=== PATIENT | male | born 1995 | race Caucasian/White ===

== ENCOUNTER 2018-08-25 18:28 | Emergency (ER) | payer OTHER ==
[~2018-08-25] VITALS: Ht 175.3 cm; Wt 79.8 kg
--- OUTSIDE RECORDS SUMMARY | 2018-08-25 18:33 | XMS REPORT | Continuity of Care Document ---
Author Author [facility] Organization [facility] Address Unknown Phone Unavailable Allergies There is no data. Medications There is no data. Problems There is no data. Procedures There is no data. Results There is no data. Encounters ACCT No. Visit Date/Time Discharge Status Pt. Type Provider Facility Loc./Unit Complaint [id number] 12/18/2012 16:06:00 12/18/2012 23:59:59 CLS Outpatient
[2018-08-25] MEDS ORDERED: HYDR30SU3 RC (19:36)
--- NOTE | 2018-08-25 19:36 | ED GI ---
General Chief Complaint: Rect Problems Stated Complaint: BLOOD IN STOOL Nursing Triage Note: pt stated that he had a bowel movement about an hour ago and saw blood dripping and blood when he wiped. Sepsis Screen: No Definite Risk History of Present Illness Date Seen by Provider: Aug 25, 2018 Time Seen by Provider: 19:00 Initial Comments 23-year-old male presents for rectal pain and bleeding. He reports passing a firm stool approximately one hour prior to arrival, after this he noted some bright red blood from his rectum. He denies having hemorrhoids. He passes approximately 2 stools every morning and one stool in the evening. He reports adequate hydration daily. He has a strong family history of colorectal cancer. He does excessive lifting regularly for work. Timing/Duration: 1-3 Hours Allergies and Home Medications Home Medications Hydrocortisone Acetate 30 Mg Supp.rect, 30 MG RC Q8H Prescribed by: HEATH HOLDER on 08/25/181935 Patient Home Medication List Home Medication List Reviewed: Yes Review of Systems Review of Systems Constitutional: no symptoms reported, see HPI Gastrointestinal: See HPI, Rectal Bleeding All Other Systems Reviewed Negative Unless Noted: Yes Past Hsvlxmi-Hnqzcl-Cqdcut Hx Past Med/Social Hx: Reviewed Nursing Past Med/Soc Hx Patient Social History Alcohol Use: Regular Use Alcohol Beverage of Choice: Beer Recreational Drug Use: No Smoking Status: Current Everyday Smoker Type Used: Smokeless Tobacco 2nd Hand Smoke Exposure: No Recent Foreign Travel: No Contact w/Someone Who Travel: No Recent Infectious Disease Expo: No Recent Hopitalizations: No Physical Abuse: No Sexual Abuse: No Seasonal Allergies Seasonal Allergies: Yes Past Medical History Tonsillectomy Respiratory: No Cardiac: Yes Hypertension Neurological: No Genitourinary: No Gastrointestinal: No Musculoskeletal: No Endocrine: No HEENT: Yes Eye Injury Loss of Vision: Denies Cancer: No Psychosocial: No Integumentary: No Blood Disorders: No Family Medical History Colon cancer 19 MOTHER Physical Exam Vital Signs Vital Signs - First Documented 08/25/18 18:39 Temp 98.6 Pulse 100 Resp 18 B/P (MAP) 151/102 (118) Pulse Ox 98 O2 Delivery Room Air Capillary Refill : Less Than 3 Seconds Height/Weight/BMI Height: 5'9.00" Weight: 176lbs. oz. 79.084403sf; BMI Method:Stated General Appearance: WD/WN, no apparent distress Respiratory: chest non-tender, lungs clear, normal breath sounds Cardiovascular: normal peripheral pulses, regular rate, rhythm Gastrointestinal: normal bowel sounds, non tender, soft, no organomegaly, no pulsatile mass; No distended, No guarding, No rebound, No tenderness Genital/Rectal: normal rectal exam, normal rectal tone, tenderness, other ( internal hemorrhoids with inflammation and tenderness, prostate soft and nontender. No stool obtained during rectal exam for heme testing) Extremities: normal range of motion, non-tender, normal inspection Neurologic/Psychiatric: no motor/sensory deficits, alert, normal mood/affect, oriented x 3 Skin: normal color, warm/dry Progress/Results/Core Measures Results/Orders Vital Signs/I&O 08/25/18 08/25/18 18:39 19:45 Temp 98.6 98.6 Pulse 100 100 Resp 18 18 B/P (MAP) 151/102 (118) 145/93 (110) Pulse Ox 98 98 O2 Delivery Room Air Blood Pressure Mean: 118 Departure Impression Primary Impression: Rectal bleeding Additional Impression: Hemorrhoids Qualified Codes: K64.9 - Unspecified hemorrhoids Disposition: HOME, SELF-CARE Condition: Improved Departure-Patient Inst. Decision time for Depature: 19:30 Referrals: KENISHA COTTO MD (PCP/Family) Primary Care Physician Patient Instructions: Hemorrhoids (DC) Add. Discharge Instructions: Increase fluid in diet, one bottle water every 2 hours while awake. Take vogl-[id number] Roy state 100 mg 1 tablet twice daily to help soften stools. Use hydrocortisone suppository, as directed. You may apply Preparation H externally, for discomfort. Follow-up with Dr. Cotto in approximately one week, sooner if symptoms are persisting or worsen. Return to emergency department if symptoms worsen, increased pain, or new emergent concerns. All discharge instructions reviewed with patient and/or family. Voiced understanding. Scripts Hydrocortisone Acetate (Hydrocortisone Acetate) 30 Mg Supp.rect 30 MG RC Q8H, #20 SUPP.RECT 0 Refills Prov: HEATH HOLDER 08/25/18 Work/School Note: Work Release Form Date Seen in the Emergency Department: Aug 25, 2018 Return to Work: Aug 28, 2018 Restrictions: Need Release from Doctor Other Restrictions Listed Below: No lifting greater than 25-30 lbs. Copy Copies To 1: KENISHA COTTO MD, AMY ARNP Aug 25, 2018 19:36
[2018-08-25 19:45] VITALS: BP 145/93
== END 2018-08-25 19:46 | disposition home or self-care (01) ==
LOC: EDUNIT# 18:28 → ER 18:29
DX: K62.5 Hemorrhage of anus and rectum (principal); K64.8 Other hemorrhoids; I10 Essential (primary) hypertension; F17.200 Nicotine dependence, unspecified, uncomplicated; Z79.52 Long term (current) use of systemic steroids; Z90.89 Acquired absence of other organs; Z80.0 Family history of malignant neoplasm of digestive organs
CPT/HCPCS: 99284

== ENCOUNTER 2018-11-09 06:34 | Outpatient (CLI) | payer OTHER ==
[~2018-11-09] VITALS: Ht 175.3 cm; Wt 75.7 kg
[~2018-11-09 06:34] MED LIST: HYDR30SU3 RC
[2018-11-09] MEDS ORDERED: METO-387 PO (13:21)
[2018-11-09] MEDS ORDERED: PANT40TA3 PO (13:21)
== END 2018-11-09 13:24 | disposition home or self-care (01) ==
LOC: PREOP 06:34
PROVIDERS: ATTEND Surgery
DX: Z01.818 Encounter for other preprocedural examination (principal)

== ENCOUNTER 2018-11-13 06:28 | Day surgery (SDC) | payer OTHER ==
[~2018-11-13] VITALS: Ht 175.3 cm; Wt 75.7 kg
[~2018-11-13 06:28] MED LIST changes: +METO-387 PO; +PANT40TA3 PO
--- OUTSIDE RECORDS SUMMARY | 2018-11-13 06:31 | XMS REPORT | CCD ---
Author Author May Goncalves MD, [facility] Address [address] [place] [address] Phone Care Team Providers Care Cupola Liner Helper Name Role Phone PP Unavailable CCM Unavailable Summary Purpose Interface Exchange Insurance Providers Payer name Policy type / Coverage type Covered libertarian ID Effective Begin Date Effective End Date [facility] Commercial Insurance [id number] Unknown Family history Father Diagnosis Age At Onset Hypertension Unknown Runs in the family Diagnosis Age At Onset Hypertension Unknown Colon cancer Unknown Mother Diagnosis Age At Onset Colon cancer Unknown Social History Social History Element Codes Description Effective Dates Marital status Unknown Single 02/27/2018 Number of children Unknown 0 02/27/[address]: 066141067 Currently uses smokeless tobacco Chew 02/27/[address]: 717055 Currently drinks alcohol 02/27/2018 Frequency of drinks SNOMED CT: 737468028 3 per week 02/27/2018 Has the patient ever used illegal drugs? Unknown Has never used illegal drugs 02/27/2018 Allergies, Adverse Reactions, Alerts Substance Reaction Codes Entered Date Inactivated Date Status Penicillin Unknown 02/27/2018 No Inactive Date Active Past Medical History Illness Codes Condition Status Onset Date Resolved Date Melena ICD-9: 578.1 ICD-10: K92.1 Active 08/28/2018 Unknown Other hemorrhoids ICD- 9: 455.2 ICD-10: K64.8 Active 08/28/2018 Unknown Essential (primary) hypertension ICD-9: 401.1 ICD-10: I10 Active 02/28/2018 Unknown Gastro-esophageal reflux disease without esophagitis ICD-9: 530.81 ICD-10: K21.9 Active 02/28/2018 Unknown Vomiting without nausea ICD-9: 787.03 ICD-10: R11.11 Active 02/28/2018 Unknown Problems Condition Codes Effective Dates Condition Status Melena ICD-9: 578.1 ICD-10: K92.1 08/28/2018 Active Other hemorrhoids ICD- 9: 455.2 ICD-10: K64.8 08/28/2018 Active Essential (primary) hypertension ICD-9: 401.1 ICD-10: I10 02/28/2018 Active Gastro-esophageal reflux disease without esophagitis ICD-9: 530.81 ICD-10: K21.9 02/28/2018 Active Vomiting without nausea ICD-9: 787.03 ICD-10: R11.11 02/28/2018 Active Medications Medication Codes Instructions Start Date Stop Date Status Fill Instructions pantoprazole 40 mg tablet,delayed release RxNorm: 222903 1 Tablet(s) PO daily 08/28/2018 02/23/2019 Active metoprolol succinate ER 25 mg tablet,extended release 24 hr RxNorm: 654934 1 Tablet(s) PO daily 08/28/2018 02/23/2019 Active pantoprazole 40 mg tablet,delayed release RxNorm: 078356 1 Tablet(s) PO daily 04/20/2018 04/19/2018 Inactive pantoprazole 40 mg tablet,delayed release RxNorm: 710203 1 Tablet(s) PO daily 04/20/2018 08/17/2018 Inactive Dexilant 60 mg capsule, delayed release RxNorm: 233876 1 Capsule(s) PO daily 04/18/2018 08/27/2018 Inactive Dexilant 60 mg capsule, delayed release RxNorm: 581740 1 Capsule(s) PO daily 04/18/2018 04/17/2018 Inactive metoprolol succinate ER 25 mg tablet,extended release 24 hr RxNorm: 020450 1 Tablet(s) PO daily 04/14/2018 08/27/2018 Inactive metoprolol succinate ER 25 mg tablet,extended release 24 hr RxNorm: 689294 1 Tablet(s) PO daily 03/13/2018 04/13/2018 Inactive metoprolol succinate ER 25 mg tablet,extended release 24 hr RxNorm: 692000 1 Tablet(s) PO daily No Start Date 2017 Inactive Medication Administered No Medication Administered data Immunizations No Immunization data Assessments Condition Codes Effective Dates Other hemorrhoids ICD-10: K64.8 ICD-9: 455.2 08/28/2018 Melena ICD-10: K92.1 ICD-9: 578.1 08/28/2018 Essential (primary) hypertension ICD-10: I10 ICD-9: 401.1 03/13/2018 Gastro-esophageal reflux disease without esophagitis ICD-10 : K21.9 ICD-9: 530.81 03/13/2018 Vomiting without nausea ICD-10: R11.11 ICD-9: 787.03 02/28/2018 Reason For Visit Reason For Visit Effective Dates Notes hemorrhoids 08/28/2018 vomiting 03/13/2018 vomiting 02/28/2018 Results Observation Observation Code Item Item Code Result Date Alpha-Galactose 1 3 684944 ALPHA-GAL <0.10 kU/L 03/06/2018 [place] 15830 BEEF <0.10 kU/L 03/02/2018 [place]ef 36224 ALLERGEN INTERPRETATION 03/02/2018 [place] 20291 PORK <0.10 kU/L 03/02/2018 [place] 71860 ALLERGEN INTERPRETATION 03/02/2018 Comp Metabolic Uub697 NA 141 mEq/L 02/28/2018 Comp Metabolic Nwr129 K 4.4 mEq/L 02/28/2018 Comp Metabolic Ibg736 CL 103 mEq/L 02/28/2018 Comp Metabolic Qkb980 CO2 28.0 mEq/L 02/28/2018 Comp Metabolic Hdx558 ANION GAP 14 02/28/2018 Comp Metabolic Lud225 GLUCOSE 78 mg/dL 02/28/2018 Comp Metabolic Gav214 Creat 0.9 mg/dL 02/28/2018 Comp Metabolic Jal670 eGFR 116 ml/min/1.73m2 02/28/2018 Comp Metabolic Sao506 BUN 15 mg/dL 02/28/2018 Comp Metabolic Jzz782 B/C Ratio 17.4 Ratio 02/28/2018 Comp Metabolic Tti884 CALCIUM 10.0 mg/dL 02/28/2018 Comp Metabolic Aqx205 ALK PHOS 39 U/L 02/28/2018 Comp Metabolic Jgs669 AST(SGOT) 18 U/L 02/28/2018 Comp Metabolic Qbs331 ALT(SGPT) 16 U/L 02/28/2018 Comp Metabolic Anu155 BILI T 0.8 mg/dL 02/28/2018 Comp Metabolic Qhh572 ALBUMIN 4.8 g/dL 02/28/2018 Comp Metabolic Xso705 TPRO 7.1 g/dL 02/28/2018 Comp Metabolic Qia207 GLOB 2.3 g/dL 02/28/2018 Comp Metabolic Mix146 A/G Ratio 2.1 Ratio 02/28/2018 Comp Metabolic Nby226 Osmo 281 mOsmo 02/28/2018 Cbc With Differential Ord2 WBC 5.74 K/ul 02/28/2018 Cbc With Differential Ord2 RBC 5.39 M/ul 02/28/2018 Cbc With Differential Ord2 HGB 16.5 g/dl 02/28/2018 Cbc With Differential Ord2 HCT 48.1 % 02/28/2018 Cbc With Differential Ord2 Neut% 46.4 % 02/28/2018 Cbc With Differential Ord2 MCV 89.2 fl 02/28/2018 Cbc With Differential Ord2 Lymph% 40.4 % 02/28/2018 Cbc With Differential Ord2 MCH 30.6 pg 02/28/2018 Cbc With Differential Ord2 [place]% 11.7 % 02/28/2018 Cbc With Differential Ord2 MCHC 34.3 pg 02/28/2018 Cbc With Differential Ord2 Eos% 1.2 % 02/28/2018 Cbc With Differential Ord2 PLT 242 K/ul 02/28/2018 Cbc With Differential Ord2 Baso% 0.3 % 02/28/2018 Cbc With Differential Ord2 RDW 12.8 % 02/28/2018 Cbc With Differential Ord2 Neut ABS# 2.66 K/ul 02/28/2018 Cbc With Differential Ord2 Lymph ABS# 2.32 K/ul 02/28/2018 Cbc With Differential Ord2 [place] ABS# 0.7 K/ul 02/28/2018 Cbc With Differential Ord2 Eos ABS# 0.1 K/ul 02/28/2018 Cbc With Differential Ord2 Baso ABS# 0.0 K/ul 02/28/2018 Tsh Ord6 TSH (3rd IS) 1.13 uIU/mL 02/28/2018 Review of Systems System Result Effective Dates Constitutional No recent illness 2018 Constitutional No anorexia 08/28/2018 Constitutional No night sweats 2018 Constitutional No chills 08/28/2018 Constitutional No diaphoresis 08/28/2018 Constitutional No fatigue 08/28/2018 Constitutional No fever 08/28/2018 Constitutional No insomnia 08/28/2018 Constitutional No malaise 08/28/2018 Constitutional No weight loss 08/28/2018 Constitutional No weight gain 08/28/2018 Musculoskeletal No joint complaint 2018 Dermatologic No rash 08/28/2018 Genitourinary/Nephrology No dysuria 08/28 Gastrointestinal No abdominal pain 2018 Gastrointestinal No constipation 2018 Gastrointestinal No diarrhea 08/28/2018 Gastrointestinal melena 08/28/2018 Respiratory No cough 08/28/2018 Cardiovascular No chest pain/pressure Ears/Nose/Throat/Neck No dizziness 2018 Eyes No eye discharge 08/28/2018 Eyes No eye erythema 08/28/2018 Neurologic No alteration of consciousness 08/28/2018 Constitutional No recent illness 2017 Constitutional No anorexia 03/13/2018 Constitutional No night sweats 2017 Constitutional No chills 03/13/2018 Constitutional No diaphoresis 03/13/2018 Constitutional No fatigue 03/13/2018 Constitutional No fever 03/13/2018 Constitutional No insomnia 03/13/2018 Constitutional No malaise 03/13/2018 Constitutional No weight loss 03/13/2018 Constitutional No weight gain 03/13/2018 Eyes No eye discharge 03/13/2018 Eyes No eye erythema 03/13/2018 Ears/Nose/Throat/Neck No nasal allergies 03/13/2018 Ears/Nose/Throat/Neck No nasal discharge 03/13/2018 Ears/Nose/Throat/Neck No otalgia 2017 Cardiovascular No chest pain/pressure Cardiovascular No dyspnea 03/13/2018 Cardiovascular No edema 03/13/2018 Respiratory asthma 03/13/2018 Respiratory No cough 03/13/2018 Gastrointestinal No abdominal pain 2017 Gastrointestinal No constipation 2017 Gastrointestinal No diarrhea 03/13/2018 Genitourinary/Nephrology No dysuria 03/13 Musculoskeletal back pain 03/13/2018 Musculoskeletal No joint complaint 2017 Musculoskeletal neck pain 03/13/2018 Dermatologic No rash 03/13/2018 Neurologic No alteration of consciousness 03/13/2018 Psychiatric No depression 03/13/2018 Endocrine No dry or coarse skin 2017 Hematologic/Lymphatic No abnormal ecchymoses 03/13/2018 Gastrointestinal gastroesophageal reflux 03/13/2018 Gastrointestinal No vomiting 03/13/2018 Cardiovascular No palpitations 2017 Constitutional No recent illness 2017 Constitutional No anorexia 02/28/2018 Constitutional No night sweats 2017 Constitutional No chills 02/28/2018 Constitutional No diaphoresis 02/28/2018 Constitutional No fatigue 02/28/2018 Constitutional No fever 02/28/2018 Constitutional No insomnia 02/28/2018 Constitutional No malaise 02/28/2018 Constitutional No weight loss 02/28/2018 Constitutional No weight gain 02/28/2018 Eyes No eye discharge 02/28/2018 Eyes No eye erythema 02/28/2018 Ears/Nose/Throat/Neck No nasal discharge 02/28/2018 Ears/Nose/Throat/Neck No nasal allergies 02/28/2018 Ears/Nose/Throat/Neck No otalgia 2017 Cardiovascular No chest pain/pressure Cardiovascular No dyspnea 02/28/2018 Cardiovascular No edema 02/28/2018 Respiratory No cough 02/28/2018 Respiratory asthma 02/28/2018 Gastrointestinal No abdominal pain 2017 Gastrointestinal No constipation 2017 Gastrointestinal No diarrhea 02/28/2018 Gastrointestinal vomiting 02/28/2018 Genitourinary/Nephrology No dysuria 02/28 Musculoskeletal No joint complaint 2017 Musculoskeletal back pain 02/28/2018 Musculoskeletal neck pain 02/28/2018 Dermatologic No rash 02/28/2018 Neurologic No alteration of consciousness 02/28/2018 Psychiatric No depression 02/28/2018 Endocrine No dry or coarse skin 2017 Hematologic/Lymphatic No abnormal ecchymoses 02/28/2018 Physical Exam Exam Name System Name Item Name Status Result Effective Dates Notes Full Exam - General 1994 Constitutional general appearance Overall: well developed 08/28/2018 None Full Exam - General 1994 Constitutional general appearance Overall: in no acute distress 08/28/2018 None Full Exam - General 1994 Constitutional general appearance Overall: well nourished 08/28/2018 None Full Exam - General 1994 Eyes conjunctiva /eyelids Overall: conjunctiva clear 08/28/2018 None Full Exam - General 1994 Eyes pupils and irises Overall: pupils equal, round, reactive to light and accomodation 08/28/2018 None Full Exam - General 1994 Ears/Nose/Throat otoscopic exam Overall: external auditory canals clear 08/28/2018 None Full Exam - General 1994 Ears/Nose/Throat otoscopic exam Overall: tympanic membranes clear 08/28/2018 None Full Exam - General 1994 Ears/Nose/Throat oral cavity/pharynx/larynx Overall: oral mucosa clear 08/28/2018 None Full Exam - General 1994 Respiratory auscultation Overall: breath sounds clear bilaterally 08/28/2018 None Full Exam - General 1994 Respiratory respiratory effort/rhythm Overall: no retractions 08/28/2018 None Full Exam - General 1994 Respiratory respiratory effort/rhythm Overall: normal rate 08/28/2018 None Full Exam - General 1994 Cardiovascular auscultation of heart Overall: regular rate 08/28/2018 None Full Exam - General 1994 Cardiovascular auscultation of heart Overall: normal heart sounds 08/28/2018 None Full Exam - General 1994 Cardiovascular auscultation of heart Overall: no murmurs 08/28/2018 None Full Exam - General 1994 Abdomen abdominal exam Overall: normal bowel sounds 08/28/2018 None Full Exam - General 1994 Integument inspection of skin Overall: few scattered moles, no gross abnormalities 08/28/2018 None Full Exam - General 1994 Neurologic cranial nerves Overall: crainial nerves 2 - 12 grossly intact 08/28/2018 None Full Exam - General 1994 Psychiatric orientation/consciousness Overall: oriented to person, place and time 08/28/2018 None Full Exam - General 1994 Constitutional general appearance Overall: well developed 03/13/2018 None Full Exam - General 1994 Constitutional general appearance Overall: in no acute distress 03/13/2018 None Full Exam - General 1994 Constitutional general appearance Overall: well nourished 03/13/2018 None Full Exam - General 1994 Eyes conjunctiva /eyelids Overall: conjunctiva clear 03/13/2018 None Full Exam - General 1994 Eyes pupils and irises Overall: pupils equal, round, reactive to light and accomodation 03/13/2018 None Full Exam - General 1994 Ears/Nose/Throat otoscopic exam Overall: external auditory canals clear 03/13/2018 None Full Exam - General 1994 Ears/Nose/Throat otoscopic exam Overall: tympanic membranes clear 03/13/2018 None Full Exam - General 1994 Ears/Nose/Throat oral cavity/pharynx/larynx Overall: oral mucosa clear 03/13/2018 None Full Exam - General 1994 Respiratory auscultation Overall: breath sounds clear bilaterally 03/13/2018 None Full Exam - General 1994 Respiratory respiratory effort/rhythm Overall: no retractions 03/13/2018 None Full Exam - General 1994 Respiratory respiratory effort/rhythm Overall: normal rate 03/13/2018 None Full Exam - General 1994 Cardiovascular auscultation of heart Overall: regular rate 03/13/2018 None Full Exam - General 1994 Cardiovascular auscultation of heart Overall: normal heart sounds 03/13/2018 None Full Exam - General 1994 Cardiovascular auscultation of heart Overall: no murmurs 03/13/2018 None Full Exam - General 1994 Abdomen abdominal exam Overall: normal bowel sounds 03/13/2018 None Full Exam - General 1994 Abdomen abdominal exam Epigastric: tender to palpation 03/13/2018 None Full Exam - General 1994 Integument inspection of skin Overall: few scattered moles, no gross abnormalities 03/13/2018 None Full Exam - General 1994 Neurologic cranial nerves Overall: crainial nerves 2 - 12 grossly intact 03/13/2018 None Full Exam - General 1994 Psychiatric orientation/consciousness Overall: oriented to person, place and time 03/13/2018 None Full Exam - General 1994 Constitutional general appearance Overall: well developed 02/28/2018 None Full Exam - General 1994 Constitutional general appearance Overall: well nourished 02/28/2018 None Full Exam - General 1994 Constitutional general appearance Overall: in no acute distress 02/28/2018 None Full Exam - General 1994 Psychiatric orientation/consciousness Overall: oriented to person, place and time 02/28/2018 None Full Exam - General 1994 Neurologic cranial nerves Overall: crainial nerves 2 - 12 grossly intact 02/28/2018 None Full Exam - General 1994 Integument inspection of skin Overall: few scattered moles, no gross abnormalities 02/28/2018 None Full Exam - General 1994 Abdomen abdominal exam Overall: normal bowel sounds 02/28/2018 None Full Exam - General 1994 Abdomen abdominal exam Epigastric: tender to palpation 02/28/2018 None Full Exam - General 1994 Cardiovascular auscultation of heart Overall: regular rate 02/28/2018 None Full Exam - General 1994 Cardiovascular auscultation of heart Overall: normal heart sounds 02/28/2018 None Full Exam - General 1994 Cardiovascular auscultation of heart Overall: no murmurs 02/28/2018 None Full Exam - General 1994 Respiratory auscultation Overall: breath sounds clear bilaterally 02/28/2018 None Full Exam - General 1994 Respiratory respiratory effort/rhythm Overall: no retractions 02/28/2018 None Full Exam - General 1994 Respiratory respiratory effort/rhythm Overall: normal rate 02/28/2018 None Full Exam - General 1994 Ears/Nose/Throat otoscopic exam Overall: external auditory canals clear 02/28/2018 None Full Exam - General 1994 Ears/Nose/Throat otoscopic exam Overall: tympanic membranes clear 02/28/2018 None Full Exam - General 1994 Ears/Nose/Throat oral cavity/pharynx/larynx Overall: oral mucosa clear 02/28/2018 None Full Exam - General 1994 Eyes conjunctiva /eyelids Overall: conjunctiva clear 02/28/2018 None Full Exam - General 1994 Eyes pupils and irises Overall: pupils equal, round, reactive to light and accomodation 02/28/2018 None Procedures No Procedures data Vital Signs Date Vital 08/28/2018 Blood Pressure 1: 140/80 Code : 8480-6 BMI: 24.4 Code : 63583-6 Heart Rate 1 : 96 bpm Height: 5'10" SpO2: 98% Weight: 170 lbs 03/13/2018 Blood Pressure 1: 140/80 Code : 8480-6 BMI: 24.1 Code : 73537-6 Heart Rate 1 : 79 bpm Height: 5'10" SpO2: 99% Weight: 168 lbs 02/28/2018 Blood Pressure 1: 132/88 Code : 8480-6 BMI: 24.0 Code : 58175-3 Heart Rate 1 : 73 bpm Height: 5'10" SpO2: 99% Weight: 167 lbs Functional Status No Functional Status data History of Present Illness Symptom Name Status Result Effective Date Notes Quality intermittent 08/28/2018 None Pertinent Findings Denies pain 08/28/2018 None vomiting Quality acute 03/13/2018 None vomiting Quality intermittent 03/13/2018 None vomiting Onset and Resolution sudden in onset 03/13/2018 None vomiting Onset of Symptom 1 months ago 03/13/2018 None vomiting Triggers meals 03/13/2018 pork, beef, steak hypertension Quality chronic 03/13/2018 None hypertension Quality intermittent 03/13/2018 None hypertension Onset and Resolution ongoing 03/13/2018 None hypertension Onset of Symptom 7 years ago 03/13/2018 -since age 15 hypertension Blood Pressure Values patient checking blood pressure at home - did not bring in readings 03/13/2018 None hypertension Severity not consistently severe symptoms, the symptoms fluctuate from no symptoms to anxiety and headaches 03/13/2018 None hypertension Frequency of Episodes unchanged 03/13/2018 None hypertension Triggers stress 03/13/2018 None hypertension Alleviating Factors medication 03/13/2018 None hypertension Pertinent Findings dizziness 03/13/2018 occasionally hypertension Pertinent Findings Denies dyspnea 03/13/2018 None hypertension Pertinent Findings edema 03/13/2018 in his ankles at times hypertension Pertinent Findings palpitations 03/13/2018 at times vomiting Pertinent Findings heartburn 03/13/2018 None hypertension Onset and Resolution ongoing 02/28/2018 None hypertension Alleviating Factors medication 02/28/2018 None hypertension Blood Pressure Values patient checking blood pressure at home - did not bring in readings 02/28/2018 None hypertension Pertinent Findings dizziness 02/28/2018 occasionally hypertension Pertinent Findings Denies dyspnea 02/28/2018 None hypertension Pertinent Findings edema 02/28/2018 in his ankles at times hypertension Quality chronic 02/28/2018 None hypertension Quality intermittent 02/28/2018 None hypertension Onset of Symptom 7 years ago 02/28/2018 -since age 15 hypertension Pertinent Findings palpitations 02/28/2018 at times vomiting Quality acute 02/28/2018 None vomiting Onset and Resolution sudden in onset 02/28/2018 None vomiting Onset of Symptom 1 months ago 02/28/2018 None vomiting Quality intermittent 02/28/2018 None vomiting Triggers meals 02/28/2018 pork, beef, steak hypertension Severity not consistently severe symptoms, the symptoms fluctuate from no symptoms to anxiety and headaches 02/28/2018 None hypertension Frequency of Episodes unchanged 02/28/2018 None hypertension Triggers stress 02/28/2018 None Advance Directives No Advance Directive data Encounters Encounter Performer Location Codes Date ([id number]) 13250 EST. PATIENT, LEVEL III Diagnosis: Melena[ICD10: K92.1] Diagnosis: Other hemorrhoids[ICD10: K64.8] [facility] CPT-4: 12496 08/28/2018 ([id number]) 44642 EST. PATIENT, LEVEL III Diagnosis: Essential (primary) hypertension[ICD10: I10] Diagnosis: Gastro-esophageal reflux disease without esophagitis[ICD10: K21.9] [facility] CPT-4: 88534 03/13/2018 OFFICE VISIT, NEW - LEVEL 3 Diagnosis: Essential (primary) hypertension[ICD10: I10] Diagnosis: Gastro-esophageal reflux disease without esophagitis[ICD10: K21.9] Diagnosis: Vomiting without nausea[ICD10: R11.11] [facility] CPT-4: 00534 02/28/2018 Plan of Care Planned Activity Notes Codes Status Date Visit Plan: Blood in stool -internal hemorrhoid-family history of colon cancer -refer to Dr Graf to discuss colonoscopy 08/28/2018 Patient Education: Patient Medication Summary Completed 08/28/2018 Care Plan: Referral Order SNOMED-CT : [id number] Pending 08/28/2018 Appointment: May Goncalves WPtel: [facility] [address] (15 min) Moderate 05/04/2018 Visit Plan: Hypertension - well controlled - continue with current medications, continue with no added salt diet. Pt has been encouraged to exercise daily. The pt has been advised to call the office if there are any acute concerns about change in blood pressure readings at home. Esophageal Reflux - the patient has been counseled against excessive intake of caffeine, spicy foods, peppermint, and cinnamon - all of which can exacerbate esophageal reflux. The patient is to take medications as prescribed and call the office if the symptoms are not improving. 03/13/2018 Appointment: May Goncalves WPtel: [phone] (15 min) Moderate 03/13/2018 Patient Education: Patient Medication Summary Completed 03/13/2018 Visit Plan: Hypertension - well controlled - continue with current medications, continue with no added salt diet. Pt has been encouraged to exercise daily. The pt has been advised to call the office if there are any acute concerns about change in blood pressure readings at home. Esophageal Reflux - the patient has been counseled against excessive intake of caffeine, spicy foods, peppermint, and cinnamon - all of which can exacerbate esophageal reflux. The patient is to take medications as prescribed and call the office if the symptoms are not improving. Vomiting with ingestion of pork/beef-history of multiple tick bites-check labs including alpha-gal 02/28/2018 Appointment: May Goncalves WPtel: [phone] New Patient 02/28/2018 Patient Education: Patient Medication Summary Completed 02/28/2018 Care Plan: COMPLETE CBC AUTOMATED LOINC : 96369-6 Pending 02/28/2018 Referral: Joshua Graf HPtel:[phone] [id number] [place] Referral Appointment Requested Instructions Comment MONITOR BLOOD PRESSURE PRILOSEC OTC DAILY CHECK LABS . Hypertension - well controlled - continue with current medications, continue with no added salt diet. Pt has been encouraged to exercise daily. The pt has been advised to call the office if there are any acute concerns about change in blood pressure readings at home. Esophageal Reflux - the patient has been counseled against excessive intake of caffeine, spicy foods, peppermint, and cinnamon - all of which can exacerbate esophageal reflux. The patient is to take medications as prescribed and call the office if the symptoms are not improving. Vomiting with ingestion of pork/beef-history of multiple tick bites-check labs including alpha-gal dexilant 60mg daily-samples provided . Hypertension - well controlled - continue with current medications, continue with no added salt diet. Pt has been encouraged to exercise daily. The pt has been advised to call the office if there are any acute concerns about change in blood pressure readings at home. Esophageal Reflux - the patient has been counseled against excessive intake of caffeine, spicy foods, peppermint, and cinnamon - all of which can exacerbate esophageal reflux. The patient is to take medications as prescribed and call the office if the symptoms are not improving. REFER TO DR GRAF . Blood in stool -internal hemorrhoid-family history of colon cancer -refer to Dr Graf to discuss colonoscopy
--- OUTSIDE RECORDS SUMMARY | 2018-11-13 06:32 | XMS REPORT | CCD ---
Author Author May Goncalves MD, [facility] Address [address] [place] [address] Phone Care Team Providers Care Business Objects Report Developer Name Role Phone PP Unavailable CCM Unavailable Summary Purpose Interface Exchange Insurance Providers Payer name Policy type / Coverage type Covered libertarian ID Effective Begin Date Effective End Date [facility] Commercial Insurance [id number] Unknown Family history Father Diagnosis Age At Onset Hypertension Unknown Runs in the family Diagnosis Age At Onset Hypertension Unknown Colon cancer Unknown Mother Diagnosis Age At Onset Colon cancer Unknown Social History Social History Element Codes Description Effective Dates Marital status Unknown Single 02/27/2018 Number of children Unknown 0 02/27/[address]: 706775705 Currently uses smokeless tobacco Chew 02/27/[address]: 361739 Currently drinks alcohol 02/27/2018 Frequency of drinks SNOMED CT: 257363046 3 per week 02/27/2018 Has the patient [...] Instructions pantoprazole 40 mg tablet,delayed release RxNorm: 046144 1 Tablet(s) PO daily 08/28/2018 02/23/2019 Active metoprolol succinate ER 25 mg tablet,extended release 24 hr RxNorm: 341369 1 Tablet(s) PO daily 08/28/2018 02/23/2019 Active pantoprazole 40 mg tablet,delayed release RxNorm: 639494 1 Tablet(s) PO daily 04/20/2018 04/19/2018 Inactive pantoprazole 40 mg tablet,delayed release RxNorm: 949006 1 Tablet(s) PO daily 04/20/2018 08/17/2018 Inactive Dexilant 60 mg capsule, delayed release RxNorm: 455572 1 Capsule(s) PO daily 04/18/2018 08/27/2018 Inactive Dexilant 60 mg capsule, delayed release RxNorm: 522075 1 Capsule(s) PO daily 04/18/2018 04/17/2018 Inactive metoprolol succinate ER 25 mg tablet,extended release 24 hr RxNorm: 494306 1 Tablet(s) PO daily 04/14/2018 08/27/2018 Inactive metoprolol succinate ER 25 mg tablet,extended release 24 hr RxNorm: 440262 1 Tablet(s) PO daily 03/13/2018 04/13/2018 Inactive metoprolol succinate ER 25 mg tablet,extended release 24 hr RxNorm: 931059 1 Tablet(s) PO daily No Start Date [...] Item Code Result Date Alpha-Galactose 1 3 789557 ALPHA-GAL <0.10 kU/L 03/06/2018 [place] 29957 BEEF <0.10 kU/L 03/02/2018 [place]ef 23960 ALLERGEN INTERPRETATION 03/02/2018 [place] 55062 PORK <0.10 kU/L 03/02/2018 [place] 96762 ALLERGEN INTERPRETATION 03/02/2018 Comp Metabolic Mzd833 NA 141 mEq/L 02/28/2018 Comp Metabolic Ckg437 K 4.4 mEq/L 02/28/2018 Comp Metabolic Aoj098 CL 103 mEq/L 02/28/2018 Comp Metabolic Lid843 CO2 28.0 mEq/L 02/28/2018 Comp Metabolic Bdy400 ANION GAP 14 02/28/2018 Comp Metabolic Brp278 GLUCOSE 78 mg/dL 02/28/2018 Comp Metabolic Lcu562 Creat 0.9 mg/dL 02/28/2018 Comp Metabolic Eqx802 eGFR 116 ml/min/1.73m2 02/28/2018 Comp Metabolic Beg749 BUN 15 mg/dL 02/28/2018 Comp Metabolic Cex845 B/C Ratio 17.4 Ratio 02/28/2018 Comp Metabolic Bcj933 CALCIUM 10.0 mg/dL 02/28/2018 Comp Metabolic Pvh746 ALK PHOS 39 U/L 02/28/2018 Comp Metabolic Agj120 AST(SGOT) 18 U/L 02/28/2018 Comp Metabolic Jtk160 ALT(SGPT) 16 U/L 02/28/2018 Comp Metabolic Dcc658 BILI T 0.8 mg/dL 02/28/2018 Comp Metabolic Ufo256 ALBUMIN 4.8 g/dL 02/28/2018 Comp Metabolic Iqn096 TPRO 7.1 g/dL 02/28/2018 Comp Metabolic Bpz035 GLOB 2.3 g/dL 02/28/2018 Comp Metabolic Cma977 A/G Ratio 2.1 Ratio 02/28/2018 Comp Metabolic Jyi841 Osmo 281 mOsmo 02/28/2018 Cbc With Differential [...] 30.6 pg 02/28/2018 Cbc With Differential Ord2 [place]% 11.7 % 02/28/2018 Cbc With Differential Ord2 [...] 2.32 K/ul 02/28/2018 Cbc With Differential Ord2 [place] ABS# 0.7 K/ul 02/28/2018 Cbc With Differential [...] Code : 8480-6 BMI: 24.4 Code : 70271-5 Heart Rate 1 : 96 bpm Height: 5'10" SpO2: 98% Weight: 170 lbs 03/13/2018 Blood Pressure 1: 140/80 Code : 8480-6 BMI: 24.1 Code : 69280-8 Heart Rate 1 : 79 bpm Height: 5'10" SpO2: 99% Weight: 168 lbs 02/28/2018 Blood Pressure 1: 132/88 Code : 8480-6 BMI: 24.0 Code : 09646-2 Heart Rate 1 : 73 bpm Height: [...] data Encounters Encounter Performer Location Codes Date ([id number]) [id number] EST. PATIENT, LEVEL III Diagnosis: Melena[ICD10: K92.1] Diagnosis: Other hemorrhoids[ICD10: K64.8] [facility] CPT-4: 34651 08/28/2018 ([id number]) 27996 EST. PATIENT, LEVEL III Diagnosis: Essential (primary) hypertension[ICD10: I10] Diagnosis: Gastro-esophageal reflux disease without esophagitis[ICD10: K21.9] [facility] CPT-4: 14470 03/13/2018 OFFICE VISIT, NEW - LEVEL 3 Diagnosis: Essential (primary) hypertension[ICD10: I10] Diagnosis: Gastro-esophageal reflux disease without esophagitis[ICD10: K21.9] Diagnosis: Vomiting without nausea[ICD10: R11.11] [facility] CPT-4: 18518 02/28/2018 Plan of Care Planned Activity Notes Codes Status Date Visit Plan: Blood in stool -internal hemorrhoid-family history of colon cancer -refer to Dr Graf to discuss colonoscopy 08/28/2018 Patient Education: Patient Medication Summary Completed 08/28/2018 Care Plan: Referral Order SNOMED-CT : 635552706 Pending 08/28/2018 Appointment: May Goncalves WPtel: [facility] (15 min) Moderate 05/04/2018 Visit Plan: [...] not improving. 03/13/2018 Appointment: May Goncalves WPtel: [facility]6 [phone] (15 min) Moderate 03/13/2018 Patient Education: Patient [...] including alpha-gal 02/28/2018 Appointment: May Goncalves WPtel: [phone] New Patient 02/28/2018 Patient Education: Patient Medication Summary Completed 02/28/2018 Care Plan: COMPLETE CBC AUTOMATED LOINC : 88859-6 Pending 02/28/2018 Referral: Joshua Graf HPtel:[phone] [id number] [place] Referral Appointment Requested Instructions Comment [...]
--- OUTSIDE RECORDS SUMMARY | 2018-11-13 06:32 | XMS REPORT | Continuity of Care Document ---
Author Author [facility] Organization [facility] Address Unknown Phone Unavailable Allergies Active Description Code Type Severity Reaction Onset Reported/Identified Relationship to Patient Clinical Status Yes Penicillins [id number] Drug Allergy Unknown ANAPHYLAXIS 11/09/2018 Medications There is no data. Problems Date Dx Coded Attending Type Code Diagnosis Diagnosed By 08/25/2018 HEATH HOLDERP Ot F17.200 NICOTINE DEPENDENCE, UNSPECIFIED, UNCOMP 08/25/2018 GLORY, HEATH CLERICAL ADJUSTER Ot I10 ESSENTIAL (PRIMARY) HYPERTENSION 08/25/2018 GLORY, HEATH CLERICAL ADJUSTER Ot K62.5 HEMORRHAGE OF ANUS AND RECTUM 08/25/2018 GLORY, HEATH CLERICAL ADJUSTER Ot K64.8 OTHER HEMORRHOIDS 08/25/2018 GLORY, HEATH CLERICAL ADJUSTER Ot Z79.52 MANAGER SIGN (CURRENT) USE OF SYSTEMIC STER 08/25/2018 GLORY, HEATH CLERICAL ADJUSTER Ot Z80.0 FAMILY HISTORY OF MALIGNANT NEOPLASM OF 08/25/2018 GLORY, HEATH CLERICAL ADJUSTER Ot Z90.89 ACQUIRED ABSENCE OF OTHER ORGANS 08/29/2018 GLORY, HEATH CLERICAL ADJUSTER Ot F17.200 NICOTINE DEPENDENCE, UNSPECIFIED, UNCOMP 08/29/2018 GLORY, HEATH CLERICAL ADJUSTER Ot I10 ESSENTIAL (PRIMARY) HYPERTENSION 08/29/2018 GLORY, HEATH CLERICAL ADJUSTER Ot K62.5 HEMORRHAGE OF ANUS AND RECTUM 08/29/2018 GLORY, HEATH CLERICAL ADJUSTER Ot K64.8 OTHER HEMORRHOIDS 08/29/2018 GLORY, HEATH CLERICAL ADJUSTER Ot Z79.52 DETENTION (CURRENT) USE OF SYSTEMIC STER 08/29/2018 GLORY, HEATH CLERICAL ADJUSTER Ot Z80.0 FAMILY HISTORY OF MALIGNANT NEOPLASM OF 08/29/2018 GLORY, HEATH CLERICAL ADJUSTER Ot Z90.89 ACQUIRED ABSENCE OF OTHER ORGANS 11/10/2018 TIERA GRAF DO Ot Z01.818 ENCOUNTER FOR OTHER PREPROCEDURAL EXAMIN Procedures There is no data. Results There is no data. Encounters ACCT No. Visit Date/Time Discharge Status Pt. Type Provider Facility Loc./Unit Complaint [id number] 11/09/2018 06:34:00 11/09/2018 13:24:00 DIS Outpatient TIERA GRAF DO [facility] PREOP COLONOSCOPY/EGD [id number] 08/25/2018 18:29:00 08/25/2018 19:46:00 DIS Emergency HEATH HOLDER [facility] ER BLOOD IN STOOL [id number] 12/18/2012 16:06:00 12/18/2012 23:59:59 CLS Outpatient [id number] 11/13/2018 07:30:00 PEN Preadmit TIERA GRAF DO [facility] ENDO BLOOD IN STOOL/GERD
[2018-11-13] MEDS ORDERED: PROPOFOL INJECTION 50 ML IV ONE (06:43)
[2018-11-13] MEDS ORDERED: MIDAZOLAM 5 MG/5 ML (VERSED) VIAL ONE (06:43)
[2018-11-13] MEDS ORDERED: LIDOCAINE PF 2% 5 ML (XYLOCAINE) VIAL ONE (06:46)
[2018-11-13] MEDS ORDERED: LACTATED RINGERS 1,000 ML IV ONE (06:47)
[2018-11-13] MEDS ORDERED: LACTATED RINGERS 1,000 ML IV STA (07:00)
[2018-11-13] MEDS ORDERED: HURRICAINE EXT TUBE (BENZOCAINE) XX PRN (07:00)
[2018-11-13 07:13] VITALS: BP 127/91
--- NOTE | 2018-11-13 07:27 | Progress Note-Pre Operative ---
Pre-Operative Progress Note H&P Reviewed The H&P was reviewed, patient examined and no changes noted. Date Seen by Provider: Nov 13, 2018 Time Seen by Provider: 07:20 Date H&P Reviewed: Nov 13, 2018 Time H&P Reviewed: 07:20 Pre-Operative Diagnosis: gerd, rectal bleeding TIERA GRAF DO Nov 13, 2018 07:27
[2018-11-13] MEDS ORDERED: HURRICAINE EXT TUBE (BENZOCAINE) ONE (07:35)
--- NOTE | 2018-11-13 08:05 | Discharge Inst-Simple/Standard ---
Discharge Inst-Standard Patient Instructions/Follow Up Plan of Care/Instructions/FU: 2 weeks Judah Activity as Tolerated: Yes Discharge Diet: Regular Diet TIERA GRAF DO Nov 13, 2018 08:05
--- NOTE | 2018-11-13 08:06 | Progress Note-Post Operative ---
Post-Operative Progess Note Surgeon (s)/Cabbage Salter (s) Surgeon TIERA GRAF DO Cabbage Salter: na Pre-Operative Diagnosis gerd, rectal bleeding Post-Operative Diagnosis small hiatal hernia Procedure & Operative Findings Date of Procedure 11/13/18 Procedure Performed/Findings egd c biopsies, colonoscopy c hot bx polypectomy Anesthesia Type per fur puller Estimated Blood Loss Estimated blood loss (mL): none Specimens/Packing Specimens Removed antrum, ge, rectal polyp TIERA GRAF DO Nov 13, 2018 08:06
[2018-11-13 08:20] VITALS: BP 134/78
[2018-11-13 08:50] VITALS: BP 119/88
[2018-11-13 08:55] VITALS: BP 119/88
--- NOTE | 2018-11-13 13:56 | OPERATIVE REPORT ---
DATE OF SERVICE: 11/13/2018 PREOPERATIVE DIAGNOSES: Gastroesophageal reflux disease and rectal bleeding. POSTOPERATIVE DIAGNOSES: Small hiatal hernia and rectal polyp and family history of colon cancer. PROCEDURE: EGD with biopsies, colonoscopy with hot biopsy polypectomy. SURGEON: Tiera So DO ANESTHESIA: Per SCREWHEAD STONER AND POLISHER. ESTIMATED BLOOD LOSS: None. COMPLICATIONS: None. INDICATIONS: The patient is a 23-year-old male who has been having some rectal bleeding that is bright red and he also has gastroesophageal reflux disease. It was fairly under control on Protonix. He understands risks and benefits of procedure and wished to proceed with procedure. Consent was signed in the chart. DESCRIPTION OF PROCEDURE: The patient was taken to the endoscopy suite, placed in left lateral recumbent position. Timeout was performed. Scope was inserted into the mouth, down the esophagus, stomach and into the duodenum without difficulty. There were no polyps, masses or ulceration of the duodenum. Scope was slowly retracted back into the stomach where it was further insufflated. No polyps, masses or ulcerations within the stomach. Biopsy of the antrum was obtained. Scope was retroflexed noting a small hiatal hernia. No other pathology noted. Scope was returned to its normal position, slowly withdrawn to the distal esophagus. No polyps, masses or ulcerations. A biopsy was obtained of the GE junction. Scope was then slowly retracted back to completely remove noting no other pathology. Digital rectal exam was performed. There were no palpable polyps, masses or ulcerations. Scope was inserted into the rectum and advanced all the way to the cecum with minimal difficulty. Prep was adequate. Scope was then slowly retracted back. There were no polyps, mass or ulceration within the cecum, ascending, transverse, descending and sigmoid colon. Within the rectum, a small polyp was present to which hot biopsy polypectomy was performed. Scope was retroflexed some slight internal hemorrhoids. Scope was returned to its normal position, slowly withdrawn until completely removed, noting no other pathology. The patient tolerated procedure well without any complications. He was taken to the recovery room in stable condition. RECOMMENDATIONS: The patient is to continue on his Protonix. He will follow up with us in 2 weeks to discuss pathology results. The patient will need repeat colonoscopy in 5 years due to his family history of colon cancer. If he has any return of his symptoms, he should be reevaluated at that time. Job ID: [id number] DocumentID: [id number] Dictated Date: 11/13/2018 08:10:11 Military Personnel Specialist Date: 11/13/2018 13:56:36 Dictated By: TIERA SO DO
--- NOTE | 2018-11-13 14:31 | Anesthesia-General Post-Op ---
MAC Patient Condition Mental Status/LOC: Same as Preop Cardiovascular: Satisfactory Nausea/Vomiting: Absent Respiratory: Satisfactory Pain: Controlled Complications: Absent Post Op Complications Complications None Follow Up Care/Instructions Patient Instructions None needed. Anesthesiology Discharge Order Discharge Order Patient is doing well, no complaints, stable vital signs, no apparent adverse anesthesia problems. No complications reported per nursing. MARSHALL MUJICA CRNA Nov 13, 2018 14:31
== END 2018-11-13 09:00 | disposition home or self-care (01) ==
LOC: ENDO 06:28
PROVIDERS: ATTEND Surgery
DX: D12.8 Benign neoplasm of rectum (principal); K44.9 Diaphragmatic hernia without obstruction or gangrene; K21.9 Gastro-esophageal reflux disease without esophagitis; K31.89 Other diseases of stomach and duodenum; K62.5 Hemorrhage of anus and rectum; I10 Essential (primary) hypertension; J45.909 Unspecified asthma, uncomplicated; Z88.0 Allergy status to penicillin; Z87.891 Personal history of nicotine dependence; Z79.899 Other long term (current) drug therapy